=== PATIENT | female | born 1995 | race Two or more races ===

== ENCOUNTER 2023-04-29 17:48 | Outpatient (REF) | payer MEDICAID, SELFPAY ==
[2023-04-29 18:44] LABS: Influenza A PCR NEGATIVE (Negative); Influenza B PCR NEGATIVE (Negative); Resp Syncy Virus RNA Qual PCR NEGATIVE (Negative); SARS COV2 PCR INHOUSE NEGATIVE (Negative)
== END 2023-04-29 17:49 | disposition home or self-care (01) ==
LOC: HO.LNP 17:48
PROVIDERS: Visit Provider Internal Medicine Geriatric Medicine
DX: Z11.52 Encounter for screening for COVID-19 (principal); J01.00 Acute maxillary sinusitis, unspecified
CPT/HCPCS: 0241U

== ENCOUNTER 2023-09-01 11:39 | Outpatient (REF) | payer OTHER, SELFPAY ==
[2023-09-07 13:53] LABS: C. trachomatis RNA TMA NOT DETECTED (NOT DETECTED); N. gonorrhoeae RNA TMA NOT DETECTED (NOT DETECTED); Trichomonas (NAAT) NOT DETECTED (NOT DETECTED)
== END 2023-09-01 11:40 | disposition home or self-care (01) ==
LOC: HO.LNP 11:39
PROVIDERS: Visit Provider Advanced Practice Midwife
DX: Z12.4 Encounter for screening for malignant neoplasm of cervix (principal); Z11.3 Encounter for screening for infections with a predominantly sexual mode of transmission
CPT/HCPCS: 87491; 87591; 87661; 88142

== ENCOUNTER 2024-10-23 08:26 | Outpatient (REF) | payer OTHER, SELFPAY ==
--- OUTSIDE RECORDS SUMMARY | 2024-10-23 08:40 | XMS_ITS | Encounter Summary ---
Author Organization [employer] Address [address] [facility] [address] [place] [address] Care Team Providers Care Boring Mill Set Up Operator Name Role Phone Name, Seb RODAS Primary Care Provider [phone] Reason for Visit * Reason Onset Date Comments Referral 07/07/2023 Encounter Details Date Type Department Care Team ([facility] st Contact Info) Description 07/07/2023 Telephone [facility] [address] [place] [phone] Name, MD Seb [address] [place], [place] [phone] Referral Social History Tobacco Use Types Packs/Day Years Used Date Smoking Tobacco: Never Smokeless Tobacco: Never Alcohol Use Standard Drinks/Week Comments Not Currently 0 (1 standard drink = 0.6 oz pur e alcohol) consumes on occassions Depression Answer Date Recorded Patient Health Questionnaire-9 Score 7 11/16/2022 Housing Stability Answer Date Recorded What is your housing situation today? I have raciel combs 04/09/[address] you li ve. Do you have problems with any of the following? None of the above 04/09/2023 Food Insecurity Answer Date Recorded Within the past 12 months, y ou worried that your food would run out before you got money to buy more: Never True 04/09/2023 Within the past 12 months,th e food you bought just didn't last and you didn't have enough money to get more: Never True Transportation Answer Date Recorded In the past 12 months, has l ack of transportation kept you from medical appts, meetings, work or from getting things needed for daily living? No 04/09/2023 Utilities Answer Date Recorded In the past 12 months, has t he electric, gas, oil or water company threatened to shut off services in your home? No 04/09/2023 Depression Answer Date Recorded Patient Health Questionnaire-2 Score 2 11/16/2022 Comments Unknown Sex and Gender Information Value Date Recorded Sex Assigned at Female 04/12/2022 10:34 AM EDT Legal Sex Female 10:34 AM EDT Gender Identity Female 11/15/2022 12:40 PM EDT Sexual Orientation Straight 11/17/2022 4: 32 PM EDT Sexual Orientation asexual 11/17/2022 4: 32 PM EDT documented as of this encounter Miscellaneous Notes * Telephone Encounter - Bernice Camacho RN - 07/07/2023 2:38 PM EST Please review and advise if needed , pt. Does not has any concerns right now, looking to see IT PORTFOLIO MANAGER. Thanks. * Telephone Encounter - Darion Perez - 07/07/2023 2:18 PM EST Tc from patient requesting a internal referral for IT PORTFOLIO MANAGER as of right now the patient does not haveany concerns documented in this encounter Plan of Treatment Upcoming Encounters Date Type Department Care Team (Late st Contact Info) Description 12/03/2024 10:30 AM EDT Office Visit [facility] OPTOM[facility]RY [address] [place] [address] Zhane Woods, OD [address] [place] [address] 01/28/2025 1:30 PM EDT Office Visit [facility] MED[facility] [address] [place] [address] Name, MD Seb [address] [place] [address] documented as of this encounter Goals Goal Patient Goal Type Associated Problems Recent Progress Patient-Stated? Author Blood Pressure < 130/80 Blood Pressure 148/94(05/05/ 2025 4:16 PM EDT) No Ileana Boone, PharmD Note: Achieve BP goal of < 130/80 mmHg over the next 3 months as per ACC/AHA Guidelines. Record your blood pressure 2-3x per week Blood Pressure On track( 023 1:49 PM EST) No Ileana Boone, PharmD Note: Continue to SMBP and record values for review in follow up. documented as of this encounter Visit Diagnoses Not on filedocumented in this encounter Additional Health Concerns Assessment Noted Time PHQ-9 Depression Total Score: 7 11/17/19 23 1:31 PM EDT documented as of this encounter Care Teams Boring Mill Set Up Operator Relationship Specialty Start Date End Date Name, MD Seb [address] [place] [address] PCP - General Family Medicine 02/01/18 documented as of this encounter
--- OUTSIDE RECORDS SUMMARY | 2024-10-23 08:40 | XMS_ITS | Clinical Summary ---
Author Organization [facility] Address [address] [place] [address] Phone Care Team Providers Care Er Medical Technician Name Role Phone Name, Seb RODAS Primary Care Provider [phone] Allergies Active Allergy Reactions Criticality Noted Date Comments Aspirin 09/02/2024 Encounters Date Type Department Care Team Description 09/02/2024 10:18 PM EDT - 09/03/2024 12:03 AM EDT Emergency [facility] Emergency [address] [place] [address] Superficial injury of right index finger, initial encounter (Primary Dx) Discharge Disposition: Home or Self Care from Last 3 Months Immunizations Name Administration Dates Next Due Tdap Tetanus diptheria acell ular pertussis (Boostrix; Adacel) 7yo and older 09/02/2024 Medical History Medical History Date Comments Hypertension Asthma Social History Tobacco Use Types Packs/Day Years Used Date Smoking Tobacco: Never Assessed Comments No Sex and Gender Information Value Date Recorded Sex Assigned at Not on file Legal Sex Female 7:36 PM EDT Gender Identity Not on file Sexual Orientation Not on file Obstetrics History Last Filed Vital Signs Vital Sign Reading Time Taken Comments Blood Pressure 155/97 09/02/2024 7:39 PM EDT Pulse 100 09/02/2024 7:39 PM EDT Temperature 37.2 ??C (99 ??F) 09/02/2024 7:39 PM EDT Respiratory Rate 20 09/02/2024 7:39 PM EDT Oxygen Saturation 100% 09/02/2024 7:39 PM EDT Inhaled Oxygen Concentration - - Weight 116 kg (255 lb) 09/02/2024 7:39 PM EDT Height 175.3 cm (5' 9 ) 09/02/2024 7:39 PM EDT Body Mass Index 37.66 09/02/2024 7:39 PM EDT Plan of Treatment Health Maintenance Due Date Last Done Comments Hepatitis B Vaccines (1 of 3 - 19+ 3-dose series) 08/25/2014 Pneumococcal Vaccine: Pediatrics (0 to 5 Years) and At-Risk Patients (6 to 64 Years) (1 of 2 - PCV) 08/25/2014 Cervical Cancer Screening: Pap Smear 08/25/2016 COVID-19 Vaccine ( season) 2024 03/31/2022, 06/09/2021, 10/28/2020, Additional history exists Depression Screening 09/03/2024 11/16/2022 HIV Screening 09/03/2024 Hepatitis C Screening 09/03/2024 Hypertension/CHF/CAD Annual BMP Blood Test 09/03/2024 Social Influencers of Health Screening 09/03/2024 Cholesterol Screening (Lipid Panel) 12/02/2027 12/01/2022 DTaP,Tdap,and Td Vaccines (3 - Td or Tdap) 09/02/2034 09/02/2024, 02/23/2022 Influenza Vaccine Completed 08/13/2024 HIB Vaccines Aged Out No longer eligi ble based on patient's age to complete this topic HPV Vaccines Aged Out No longer eligi ble based on patient's age to complete this topic Hepatitis A Vaccines Aged Out No long er eligible based on patient's age to complete this topic IPV Vaccines Aged Out No longer eligi ble based on patient's age to complete this topic MMR Vaccines Aged Out No longer eligi ble based on patient's age to complete this topic Meningococcal ACWY Vaccine Aged Out N o longer eligible based on patient's age to complete this topic Meningococcal B Vaccine Aged Out No l onger eligible based on patient's age to complete this topic RSV Immunization Patients Under 20 months Aged Out No longer eligible based on patient's age to complete this topic Varicella Vaccines Aged Out No longer eligible based on patient's age to complete this topic Procedures Procedure Name Priority Date/Time Associated Diagnosis Comments XR FINGERS 2+ VIEWS RIGHT STAT 09/02/2024 7:56 PM EDT from Last 3 Months Results * XR Fingers 2+ Views Right (09/02/2024 7:56 PM EDT) Anatomical Region Laterality Modality Upper Extremities, Fingers Right [facility] [employer] [facility] 09/03/2024 9:07 AM EDT Impressions 09/03/2024 9:09 AM EDT Impression: 1. No evidence of fracture. 2. No retained opaque foreign body identified. Telerad PA ([id number]) -------- FINAL REPORT -------- Dictated By: Briana Donaldson Dictated Date: 09/03/2024 09:07 ET Assigned Physician: Briana Donaldson Reviewed and Electronically Signed By: Briana Donaldson Signed Date: 09/03/2024 09:09 ET Workstation ID: [id number] Transcribed By: Self Edit Transcribed Date: 09/03/2024 09:07 ET Narrative 09/03/2024 9:09 AM EDT History: Laceration tip of second digit right hand with mandoline. Findings: An AP view of the right hand and oblique and lateral views of the second digit are submitted. Soft tissue swelling is seen at the distal end of the second digit, with irregularity of the skin line, consistent with the clinically apparent laceration. No retained opaque foreign body is seen. There is no evidence of fracture. The remainder of the right hand is unremarkable. Procedure Note Briana Donaldson MD - 09/03/2024 History: Laceration tip of second digit right hand with mandoline. Findings: An AP view of the right hand and oblique and lateral views of the seconddigit are submitted. Soft tissue swelling is seen at the distal end of the second digit, withirregularity of the skin line, consistent with the clinically apparentlaceration. No retained opaque foreign body is seen. There is no evidenceof fracture. The remainder of the right hand is unremarkable. IMPRESSION: Impression: 1. No evidence of fracture. 2. No retained opaque foreign body identified. Telerad NATALYA ([id number]) -------- FINAL REPORT -------- Dictated By: Briana Donaldson Dictated Date: 09/03/2024 09:07 ET Assigned Physician: Briana Donaldson Reviewed and Electronically Signed By: Briana Donaldson Signed Date: 09/03/2024 09:09 ET Workstation ID: [id number] Transcribed By: Self Edit Transcribed Date: 09/03/2024 09:07 ET Antonino Wright MD IMG XR PROCEDURES Final Result from Last 3 Months Insurance MEDICAID - [place] [facility] Care Teams Er Medical Technician Relationship Specialty Start Date End Date Name, MD Seb [address] [place] [address] PCP - General Internal Medicine 09/02/24
--- OUTSIDE RECORDS SUMMARY | 2024-10-23 08:40 | XMS_ITS | Clinical Summary ---
Author Organization [employer] Address [address] [facility] [address] [place] [address] Care Team Providers Care Welfare Centre Manager Name Role Phone Name, Seb RODAS Primary Care Provider [phone] Allergies Active Allergy Reactions Criticality Noted Date Comments Aspirin Rash Low 01/16/2018 Medications amitriptyline (Elavil) 25 MG tablet Take 1 tablet (25 mg) by mouth at bedtime. 30 tablet 5 4 Active atomoxetine (Strattera) 18 MG capsule 5 Active hydrOXYzine HCl (Atarax) 25 MG tablet TAKE 1/2 TO 2 TABLETS BY MOUTH EVERY DAY NEEDED FOR ANXIETY 5 Active albuterol 108 (90 Base) MCG/ACT inhalerIndication s:Mild intermittent asthma with acute exacerbation Inhale 2 puffs every 6 (six) hours if needed for wheezing. 18 g 11 5 07/20/19 26 Active amLODIPine (Norvasc) 5 MG tabletIndications :Essential hypertension Take 1 tablet (5 mg) by mouth Once daily. 90 tablet 3 5 Active loratadine (Claritin) 10 MG tablet Take 1 tablet (10 mg) by mouth if needed each day for allergies. 30 tablet 11 5 Active Active Problems Problem Noted Date Diagnosed Date Presence of Mirena IUD 10/16/2024 Influenza A 07/20/2024 Assessment & Plan (07/23/2024 10:19 AM EST): - Patient is stable with evidence of mild asthma exacerbation - Due to mother's positive for Flu A, assume hers as well, but outside the window for Tamiflu in any case - COVID testing negative at home - Home supportive measures advised including: increased fluids, honey, tylenol/ibuprofen per instructions for pain/fever, nasal saline spray, cool mist humidifier. 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 Essential hypertension 04/29/2022 Assessment & Plan (04/25/2023 7:49 AM EST): Not at goal, likely needs to increase to 10mg of Amlodipine She will monitor BP at home daily for the next 2 weeks Follow-up discussion with specialist about increasing dose Migraine without status migrainosus, not intract able 04/29/2022 Decreased hearing 06/30/2018 Mild asthma 06/30/2018 Assessment & Plan (07/23/2024 10:27 AM EST): Pt with wheezing, tachycardia, O2 sat of 98% RUSS refilled, use 4 puffs every 4-6 hours during exacerbation Prednisone Vitamin D deficiency 06/30/2018 Pituitary adenoma 04/21/2018 Blurring of visual image 02/01/2018 Headache 02/01/2018 Hyperprolactinemia 02/01/2018 Irregular periods 02/01/2018 Knee pain 02/01/2018 Encounters Date Type Department Care Team Description 10/15/2024 4:00 PM EDT Office Visit [facility] MED[facility]INE [address] [place] [phone] Seb Vera MD Pituitary adenoma ([facility]) (Primary Dx); Hyperprolactinemia ([facility]); Morbid obesity ([facility]); Low vitamin D level; Dysuria 10/15/2024 Travel 10/12/2024 Telephone [facility] MEDIC[facility] [address] [place], [place] [phone] Kwame Álvarez MA chart prep 10/03/2024 Patient Outreach [facility] PED[facility] [address] [place] [address] Seb Vera MD Pre-visit Planning ([facility] unable to reach [facility] ) 08/13/2024 3:30 PM EST Nurse Only [facility] [address] [place] [address] Kerrie Edge LPN Encounter for immunization (Primary Dx) 08/02/2024 Refill [facility] [address] [place] [address] Name, MD Seb 08/02/2024 Travel from Last 3 Months Immunizations Name Administration Dates Next Due Influenza, seasonal, injecta ble, preservative free 08/13/2024 Pfizer Covid-19 Vaccine 12+ 06/09/2021,,10/07/2020 Pfizer Covid-19 Vaccine 12+ Bivalent 03/31/2022 Tdap 02/23/2022 Social History Tobacco Use Types Packs/Day Years Used Date Smoking Tobacco: Never Smokeless Tobacco: Never Tobacco Cessation:Counseling Given: Not Answered Alcohol Use Standard Drinks/Week Comments Not Currently 0 (1 standard drink = 0.6 oz pur e alcohol) consumes on occassions Depression Answer Date Recorded Patient Health Questionnaire-9 Score 13 10/15/2024 Patient Health Questionnaire-9 Score 13 10/15/2024 Last PHQ-9: Questionnaire Data Not on file 0 10/15/2024 Housing Stability Answer Date Recorded What is your housing situation today? I have raciel combs 10/15/[address] you li ve. Do you have problems with any of the following? None of the above 10/15/2024 Food Insecurity Answer Date Recorded Within the past 12 months, y ou worried that your food would run out before you got money to buy more: Never True 10/15/2024 Within the past 12 months,th e food you bought just didn't last and you didn't have enough money to get more: Never True 10/2024 Transportation Answer Date Recorded In the past 12 months, has l ack of transportation kept you from medical appts, meetings, work or from getting things needed for daily living? No 10/15/2024 Utilities Answer Date Recorded In the past 12 months, has t he electric, gas, oil or water company threatened to shut off services in your home? No 10/15/2024 Depression Answer Date Recorded Patient Health Questionnaire-2 Score 2 10/15/2024 Internet Access Answer Date Recorded Internet Access Q1 Yes 10/15/2024 Internet Access Q2 Not on file 10/15/2024 Comments No Sex and Gender Information Value Date Recorded Sex Assigned at Female 04/12/2022 10:34 AM EDT Legal Sex Female 10:34 AM EDT Gender Identity Female 11/15/2022 12:40 PM EDT Sexual Orientation Straight 11/17/2022 4: 32 PM EDT Sexual Orientation asexual 11/17/2022 4: 32 PM EDT Last Filed Vital Signs Vital Sign Reading Time Taken Comments Blood Pressure 148/94 10/15/2024 4:16 PM EDT Pulse 88 10/15/2024 4:16 PM EDT Temperature 36.4 ??C (97.5 ??F) 10/15/2024 4:16 PM ED T Respiratory Rate 18 10/15/2024 4:16 PM EDT Oxygen Saturation 98% 10/15/2024 4:16 PM EDT Inhaled Oxygen Concentration - - Weight 124 kg (274 lb) 10/15/2024 4:16 PM EDT Height 175.3 cm (5' 9 ) 10/15/2024 4:16 PM EDT Body Mass Index 40.46 10/15/2024 4:16 PM EDT Plan of Treatment Upcoming Encounters Date Type Department Care Team (Late st Contact Info) Description 12/03/2024 10:30 AM EDT Office Visit [facility] OPTOMETRY [address] [place] [address] Chuck, Zhane, OD [address] [place] [address] 01/28/2025 1:30 PM EDT Office Visit [facility] MEDICINE [address] [place], [place] [phone] Name, MD Seb [address] [place], [place] [phone] Health Maintenance Due Date Last Done Comments HIV Screening 1995 Family Planning (PISQ) 08/25/2010 Hepatitis C Screening 08/25/2013 Hepatitis B Vaccines (1 of 3 - 19+ 3-dose series) 08/25/2014 Pneumococcal Vaccine: Pediatrics (0 to 5 Years) and At-Risk Patients (6 to 49) Years) (1 of 2 - PCV) 08/25/2014 COVID-19 Vaccine ( season) 2024 03/31/2022, 06/09/2021, 10/28/2020, Additional history exists Alcohol/Substance Use Screening 10/15/2025 10/15/2024 Depression Screening 10/15/2025 10/15/2024, 10/16/19 SDOH Screening 10/15/2025 10/15/2024 Tobacco Screening 10/15/2025 10/15/2024 Pap Smear 08/31/2026 09/01/2023, 09/01/2023 Lipid Panel 12/02/2027 12/01/2022, 03/31/2022 DTaP/Tdap/Td Vaccines (3 - Td or Tdap) 09/02/2034 09/02/2024, 02/23/2022 Zoster Vaccines (1 of 2) 08/25/2045 RSV Patients and Patients Aged 60 years or older (1 - 1-dose 75+ series) 08/25/2070 Influenza Vaccine Completed 08/13/2024 HIB Vaccines Aged [...] patient's age to complete this topic Meningococcal Vaccine Aged Out No gabriel matt eligible based on patient's age to complete this topic RSV under 20 months Aged Out No longe r eligible based on patient's age to complete this topic Rotavirus Vaccines Aged Out No longer eligible based on patient's age to complete this topic Goals Goal Patient Goal Type Associated Problems Recent Progress Patient-Stated? Author Blood Pressure < 130/80 Blood Pressure 148/94(2024 4:16 PM EDT) No Ileana Boone, PharmD Note: Achieve BP goal of < 130/80 mmHg over the next 3 months as per ACC/AHA Guidelines. Record your blood pressure 2-3x per week Blood Pressure On track( 023 1:49 PM EST) No Ileana Boone, Meenakshi Note: Continue to SMBP and record values for review in follow up. Procedures Procedure Name Priority Date/Time Associated Diagnosis Comments IMAGE-GUIDED PAP W/AGE BASED SCR,W/CT/NG/TRICH Routine 09/01/2023 11:39 AM EDT Cervical cancer screening Encntr screen for infections w sexl mode of transmiss LIPID PANEL, STANDARD Routine 12/01/2022 12:05 PM EDT IUD (intrauterine device) in place Benign prolactinoma (CMS/HCC) Essential hypertension Screening for diabetes mellitus Screening for cholesterol level History of IBS from Last 3 Months or Most Recently Relevant to Health Maintenance Results * Pap with NG,CT, Trich (09/01/2023 11:39 AM EDT) Trichomonas (NAAT) NOT DETECTED NOT DETECTED [facility] Comment:The analytical perfo rmance characteristics of thisassay have been determined by [facility]. Themodifications have not been cleared or approved bythe FDA. This assay has been validated pursuant to theCLIA regulations and is used for clinical purposes.For additional information, please refer tohttp://education.zoojoo.BE/faq/Trichomonastma(This link is being provided for information/educational purposes only.)THIS TEST WAS PERFORMED AT:[facility] [address] [phone] SWARTZ MD CTNG Ref Lab NOT DETECTED NOT DETECTED [facility] NG Ref Lab NOT DETECTED NOT DETECTED [facility] Pap Vial Vaginal structure / Unknown 09/01/2023 11:39 AM EDT 09/05/2023 2:21 PM EDT Narrative [facility] - 09/07/2023 1:53 PM EDT Collection Date: [id number] by: OLIVER Wilson: Vagina us Teena TONG LAB CYTOLOGY ORDERABLES F inal Result [facility] [address] [place] [phone] [phone] * (ABNORMAL) Lipid Panel, Standard (12/01/2022 12:05 PM EDT) Cholesterol, Total 184 <200 mg/dL [facility] HDL Cholesterol 52 > OR = 50 mg/dL [facility] Triglycerides 96 <150 mg/dL [facility] LDL Cholesterol 112(H) mg/dL (calc) [email or web address] Comment: Reference range: <100 Desirable range <100 mg/dL for primary prevention; ?? <70 mg/dL for patients with CHD or diabetic patients with > or = 2 CHD risk factors. LDL-C is now calculated using the Aurora calculation, which is a validated novel method providing better accuracy than the Friedewald equation in the estimation of LDL-C. Robi SS et al. ADINA. 2013;310(19): 0414-8007 (http://education.[employer]/faq/KTT459) Chol/HDLC Ratio 3.5 <5.0 (calc) [facility] Non-HDL Cholesterol 132(H) <130 mg/dL (calc) [facility] Comment: For patients with diabetes plus 1 major ASCVD risk factor, treating to a non-HDL-C goal of <100 mg/dL (LDL-C of <70 mg/dL) is considered a therapeutic option. Blood Venous blood specimen / Unknown 12/01/2022 12:05 PM EDT 12/01/2022 12:05 PM EDT Narrative [facility] - 12/02/2022 5:10 AM EDT FASTING:YES FASTING: YES us Seb Vera MD LAB BLOOD ORDERABLES Final Resul t [facility] [address], [place] [address] [facility] [address] [place] [address] from Last 3 Months or Most Recently Relevant to Health Maintenance Insurance [employer] [facility] Care Teams Welfare Centre Manager Relationship Specialty Start Date End Date Name, MD Seb [address] [place] [id number] PCP - General Family Medicine 02/01/18
[2024-10-23 11:28] LABS: MANUAL DIFF FLAG NO
[2024-10-23 11:33] LABS: Appearance Urine Clear; Color Urine Yellow; Glucose Urine UA Negative (Negative); Leukocyte Esterase Urine Small (1+) (Negative); Nitrite Urine Negative (Negative); UMIC TRIGGER UACC YES; Urine Blood Negative (Negative); Urine Ketones Negative (Negative); Urine Protein Negative (Neg-Trace)
[2024-10-23 11:36] LABS: Basophils Percent Auto 0.4 % (0-2); Eosinophils Absolute Auto 0.1 X10*3/uL (0.0-0.4); Eosinophils Percent Auto 1.3 % (0-4); Hematocrit 42.6 % (37.0-47.0); Imm Gran Abs Auto 0.03 X10*3/uL (0.00-0.03); Imm Gran Pct Auto 0.3 % (0.0-0.4); Lymphocytes Absolute Auto 4.1 X10*3/uL (1.2-4.9); Lymphocytes Percent Auto 37.7 % (20-40); Mean Corpuscular HGB Conc 32.9 g/dl (31.0-35.0); Mean Corpuscular Hemoglobin 28.9 pg (27.0-33.0); Mean Platelet Volume 10.1 fL (9.4-12.3); Monocytes Percent Auto 9.6 % (2-11); Neutrophils Absolute Auto 5.5 x10*3/uL (2.0-8.3); Neutrophils Percent Auto 50.7 % (45-73); Platelet Count 403 X10*3/uL (160-400); Red Blood Count 4.84 X10*6/uL (4.20-5.50); Red Cell Distribution Width 12.3 % (11.0-16.0); White Blood Count 10.7 X10*3/uL (4.8-10.8)
[2024-10-23 11:51] LABS: Bacteria Urine 2+ (None Seen); Hyaline Casts Urine 0-2 /LPF (0-2); RBC Urine 0-2 /HPF (0-2); UACC Culture Trigger YES; WBC Urine 0-5 /HPF (0-5)
[2024-10-23 13:13] LABS: Alanine Aminotransferase 44 U/L (0-31); Albumin Level 4.4 g/dL (3.5-5.0); Alkaline Phosphatase 100 U/L (39-117); Anion Gap 13 (12-20); Aspartate Amino Transferase 27 U/L (5-31); Bilirubin Total 0.4 mg/dL (0.0-1.0); Blood Urea Nitrogen 13 mg/dL (9-16); Calcium 9.5 mg/dL (8.4-10.2); Carbon Dioxide 27 mmol/L (22-29); Chloride 104 mmol/L (96-108); Cholesterol 172 mg/dL (<200); Estimated Glomerular Filt Rate > 60; Glucose Random 90 mg/dL (60-115); HDL Cholesterol 44 mg/dL (>40); LDL Cholesterol Calculated 107 mg/dL (<100); Potassium 3.9 mmol/L (3.3-5.1); Sodium 140 mmol/L (135-145); Total Protein 7.6 g/dL (6.5-8.0); Triglycerides 109 mg/dL (<150)
[2024-10-23 13:14] LABS: TSH reflex Free T4 6.76 uIU/mL (0.32-4.0); Vitamin D 25-OH Total 27.2 ng/mL (>30)
[2024-10-23 14:00] LABS: Free T4 (Free Thyroxine) 0.96 ng/dL (0.71-1.85)
[2024-10-25 10:22] LABS: Prolactin Diluted 204.4 ng/mL
== END 2024-10-23 08:27 | disposition home or self-care (01) ==
LOC: HO.HHCL 08:26
PROVIDERS: Visit Provider Internal Medicine Geriatric Medicine
DX: E66.01 Morbid (severe) obesity due to excess calories (principal); R79.89 Other specified abnormal findings of blood chemistry; R30.0 Dysuria; D35.2 Benign neoplasm of pituitary gland
CPT/HCPCS: 36415; 80053; 80061; 81001; 82306; 84146; 84439; 84443; 85025; 87086